=== PATIENT | female | born 1945 | race Caucasian/White ===

== ENCOUNTER 2017-08-05 09:00 | Outpatient (RCR) ==
--- NOTE | 2017-08-02 14:36 | RS.OPPTEV2 ---
Date of Note: 08/02/17 Visit #: 1 Date of Evaluation: 08/02/17 Payer Source: MEDICARE Date of Onset/Injury/Change in Status: 07/01/17 Surgery Performed?: Yes (s/p open bicep tenodesis, open Rotator cuff repair L shld) Procedure Performed: s/p open bicep tenodesis, open Rotator cuff repair L shld Date of Procedure: 07/01/17 Treatment Diagnosis: Rotator cuff tear History of Condition/Mechanism of Injury:: pt with L rotator cuff tear, s/p repair. Prior Level of Function.....Patient was independent with: ADL's, Self Care, Caregiving, Ambulation/Mobility, Community Integration/Access Functional Limitations: Sleep, Self Care, ADL's, Reaching, Pushing, Pulling, Lifting, Carrying Current Subjective/complaints:: pt reports MD told her to remove the sling the day after surgery and only restriction is not to lift >1lb. pt states she is tired from all of the cooking over the holiday. pt states she has been doing pendulum ex as well as wall walking ex. Treatment Side (optional): Left *Precautions: no lifting Medical History Medical History: Hypertension, CVA/TIA, Angina, Arthritis Medical History Comments:: high cholesterol, chronic kidney disease, Surgical History Comments:: port for peritoneal dialysis but has not had to use it yet. Smoking Status: Former smoker Hx Home Medications: lortab Patient's Goals: be able to use LUE Pain Assessment - Pain Description Pain Location: L shld Pain Description: Sharp, Aching Current Pain Intensity: 5-6/10 Worst Pain Intensity: 6/10 Other Comments regarding Pain:: pain increases with ROM Functional Outcome Measure UE Functional Index: 50 (37%) - G Codes & Severity Modifier G Codes & Modifier: carry current CJ. carry goal CI Source of G Code score: UE functional index, functional assessment Observation - Observation Posture: Forward Head, Rounded Shoulders, Increased Thoracic Kyphosis Handedness: Right Gait - Gait Pattern General Gait Pattern Observation: No Deviations/Normal General Range of Motion: RUE WFL's. BLE WFL's Muscle Strength: BLE 5/5. RUE 5/5 Shoulder ROM: Right WFL's Shoulder Muscle Strength: Right WFL's - Left Shoulder ROM Left Shoulder Flexion: 100 (AAROM) Left Shoulder Abduction: 76 (AAROM) Left Shoulder External Rotation: 30 (AAROM) Left Shoulder ROM Limitations: Muscle Weakness, Pain - Left Shoulder Strength Left Shoulder Flexion: 2 Poor Left Shoulder Extension: 3 Fair Left Shoulder Abduction: 2 Poor Left Shoulder Adduction: 3 Fair Left Shoulder External Rotation: 2 Poor Palpation Palpation Findings: Tenderness (L ant shld) Sensation - Sensation Right Upper Extremity: Intact/Normal Left Upper Extremity: Impaired Right Lower Extremity: Intact/Normal Left Lower Extremity: Impaired Sensation Description: Tingling Comments: N/T L fingers and toes since CVA Balance - Sitting Balance Static Sitting Balance: Normal Dynamic Sitting Balance: Normal - Standing Balance Static Standing Balance: Normal Dynamic Standing Balance: Normal - Heat/Cryotherapy Treatment: Cryotherapy Comments:: L shld Interventions - Exercise/Activities/Manual Therapy Exercises/Activities: pt instructed on AAROM with cane for shld flex, abd/add, isometric ex for L shld ext, flex, abd, add Manual Therapy: NA HOME EXERCISE PROGRAM: pt given written HEP for AAROM shld flex and abd/add. isometric shld flex, ext, add, abd - Charges Timed Code Treatment Minutes: 45 Total Treatment Time: 60 Procedures billed for this date of service:: eval med, cold pack Assessment Assessment: pt presents with decreased strength L shld, pain with ROM s/p rotator cuff repair. Patient Education: Home Exercise Program, Education of Plan of Care Rehab Potential: Good Short Term Goals Goal #1: pt report pain <5/10 L shld Goal to be met by: 08/16/17 Goal #2: pt with improved L shld ROM flex AAROM 110 abd 82 Goal to be met by: 08/16/17 Solution Consultant Goals Goal #1: pt independent with HEP Goal to be met by: 09/01/17 Goal #2: pt report pain < 3/10 Goal to be met by: 09/01/17 Goal #3: pt with improved ROM L shld flex 120 abd 90 Goal to be met by: 09/01/17 Goal #4: pt with improved UE functional index score to 65 Goal to be met by: 09/01/17 Plan - Treatment to be Provided Procedures: Therapeutic Exercises, Neuromuscular Rehab, Manual Therapy, Patient Education Modalities: Electrical Stimulation, Ultrasound/Phonophoresis, Cryotherapy, Hot Packs - Treatment Plan Frequency: 2 X week Duration: 4 weeks ORDER # VISITS AND/OR THROUGH DATE: 09/01/17 - Treatment Code (1) Pain in joint, shoulder region Code(s): M25.519 - PAIN IN UNSPECIFIED SHOULDER Qualifiers: Laterality: left Qualified Code(s): M25.512 - Pain in left shoulder (2) Rotator cuff tear, left Code(s): M75.102 - UNSP ROTATR-CUFF TEAR/RUPTR OF LEFT SHOULDER, NOT TRAUMA Qualifiers: Rotator cuff tear extent: unspecified tear extent Qualified Code(s): M75.102 - Unspecified rotator cuff tear or rupture of left shoulder, not specified as traumatic (3) Other specified postprocedural states Code(s): Z98.89 - OTHER SPECIFIED POSTPROCEDURAL STATES * DO NOT USE * Comments: z98.890
--- NOTE | 2017-08-05 10:16 | RS.OPPTDN ---
Subjective Date of Note: 08/05/17 Visit #: 2 Date of Evaluation: 08/02/17 Payer Source: MEDICARE Treatment Diagnosis: Rotator cuff tear Current Subjective/complaints:: Reports increased soreness form exercising at home ,feels she possibly overdid it.We reviewed the precautions from DR. Locke's protocol. *Precautions: no lifting - Heat/Cryotherapy Treatment: Hot Pack (20 mins. prior to exercises) Interventions - Exercise/Activities/Manual Therapy Exercises/Activities: 30 mins. total of PROM in all directions,AAROM using 1# wand for over head flexion and chest press,isometrics of IR/ER abd/add,HEP review,including pendulum. Total minutes of Exercise: 30 Manual Therapy: NA Total minutes of Manual Therapy: 0 HOME EXERCISE PROGRAM: pt given written HEP for AAROM shld flex and abd/add. isometric shld flex, ext, add, abd - Charges Timed Code Treatment Minutes: 30 Total Treatment Time: 60 Procedures billed for this date of service:: hp,ex 2 Assessment: Patient tolerates isometrics well,she reports pain with wand exercises when returning from overhead flexion.She muscle guards with IR/ER due to soreness,but improves with cues to relax.She has no pain with chest press motion in supine.She is attentive to recmmendations of the therapy staff.Patient reminded to do all exercises in PAIN FREE ROM,no lifting > 1 pound. Patient Education: Education of diagnosis, Body/Joint mechanics, Home Exercise Program, Home Safety, Activity Modification, Education of Plan of Care Patient demonstrates compliance with HEP?: Yes Short Term Goals Goal #1: pt report pain <5/10 L shld Goal to be met by: 08/16/17 (7/10 throughout treatment today) Goal #2: pt with improved L shld ROM flex AAROM 110 abd 82 Goal to be met by: 08/16/17 Progress towards Goal:: Progressing Sanitizer Goals Goal #1: pt independent with HEP Goal to be met by: 09/01/17 Progress towards goal: Progressing Goal #2: pt report pain < 3/10 Goal to be met by: 09/01/17 Goal #3: pt with improved ROM L shld flex 120 abd 90 Goal to be met by: 09/01/17 Goal #4: pt with improved UE functional index score to 65 Goal to be met by: 09/01/17 Plan PLAN OF CARE EXPIRES ON:: 09/01/17 ORDER # VISITS AND/OR THROUGH DATE: 09/01/17 PLAN: Continue PT to reduce pain in L shoulder and increase ROM and strength.
== END 2017-08-07 ==
PROVIDERS: ATTEND Orthopaedic Surgery
DX: Z47.89 Encounter for other orthopedic aftercare (principal); M25.512 Pain in left shoulder; M75.102 Unspecified rotator cuff tear or rupture of left shoulder, not specified as traumatic

== ENCOUNTER 2017-09-06 10:00 | Outpatient (RCR) | payer OTHER ==
--- NOTE | 2017-08-09 12:04 | RS.OPPTDN ---
Subjective Date of Note: 08/09/17 Visit #: 3 Date of Evaluation: 08/02/17 Payer Source: MEDICARE Treatment Diagnosis: Rotator cuff tear Current Subjective/complaints:: Patient reports mild increase in pain from beginning exercises at previous session. *Precautions: no lifting Pain Assessment - Pain Description Pain Location: ant L shoulder and along mid deltoid - Heat/Cryotherapy Treatment: Hot Pack (15 mins to the L shoulder in sitting) Interventions - Exercise/Activities/Manual Therapy Exercises/Activities: 30 mins. total of PROM in all directions,AAROM using 1# wand for over head flexion and chest press, but only able to tamica few reps today. Isometrics of IR/ER abd/add,HEP review. Pulleys for flexion x 10. Manual Therapy: NA HOME EXERCISE PROGRAM: pt given written HEP for AAROM shld flex and abd/add. isometric shld flex, ext, add, abd - Charges Timed Code Treatment Minutes: 30 Total Treatment Time: 45 Procedures billed for this date of service:: hp, ex2 Assessment: Patient experiencing increased pain to the L shoulder with ROM today , but particularly with eccentric shoulder flexion in supine. She tamica all other motions well. Pulleys tamica much better than wand exercises. Patient Education: Education of diagnosis, Home Exercise Program Patient demonstrates compliance with HEP?: Yes Short Term Goals Goal #1: pt report pain <5/10 L shld Goal to be met by: 08/16/17 (7/10 throughout treatment today) Goal #2: pt with improved L shld ROM flex AAROM 110 abd 82 Goal to be met by: 08/16/17 Progress towards Goal:: Progressing Progress towards Goal:: Progressing Progress towards Goal:: Progressing Pit Tanner Goals Goal #1: pt independent with HEP Goal to be met by: 09/01/17 Progress towards goal: Progressing Goal #2: pt report pain < 3/10 Goal to be met by: 09/01/17 Goal #3: pt with improved ROM L shld flex 120 abd 90 Goal to be met by: 09/01/17 Goal #4: pt with improved UE functional index score to 65 Goal to be met by: 09/01/17 Plan PLAN OF CARE EXPIRES ON:: 09/01/17 ORDER # VISITS AND/OR THROUGH DATE: 09/01/17 PLAN: continue with therex to improve ROM and progress to strengthening according to protocol
--- NOTE | 2017-08-12 11:00 | RS.OPPTDN ---
Subjective Date of Note: 08/12/17 Visit #: 4 Date of Evaluation: 08/02/17 Payer Source: MEDICARE Treatment Diagnosis: Rotator cuff tear Current Subjective/complaints:: Patient reports the L shoulder is still hurting alot,but does not affect her sleep.She prefers to sleep on R side with the elbow extended.She uses ice at night frequenly for pain relief. *Precautions: no lifting Pain Assessment - Pain Description Pain Description: Dull, Throbbing, Aching Current Pain Intensity: 7/10 - Heat/Cryotherapy Treatment: Hot Pack (20 mins. prior to exercises) Interventions - Exercise/Activities/Manual Therapy Exercises/Activities: 30 mins. total of PROM in all directions,AAROM for over head flexion and chest press, isometrics for abd/add,IR/ER,biceps curls in short ROM with 1#.HEP review. Total minutes of Exercise: 30 Manual Therapy: NA Total minutes of Manual Therapy: 0 HOME EXERCISE PROGRAM: pt given written HEP for AAROM shld flex and abd/add. isometric shld flex, ext, add, abd - Charges Timed Code Treatment Minutes: 30 Total Treatment Time: 50 Procedures billed for this date of service:: hp,ex 2 Assessment: Patient needs cues to relax due to pain with eccentric motion after overhead flexion .She reports aching in the middle deltoid and biceps due to fatigue.Her passive IR /ER is improving . Patient Education: Education of diagnosis, Body/Joint mechanics, Home Exercise Program, Home Safety, Activity Modification, Education of Plan of Care Patient demonstrates compliance with HEP?: Yes Short Term Goals Goal #1: pt report pain <5/10 L shld Goal to be met by: 08/16/17 (7/10 throughout treatment today) Progress towards Goal:: No Change Goal #2: pt with improved L shld ROM flex AAROM 110 abd 82 Goal to be met by: 08/16/17 Progress towards Goal:: Progressing Comments:: abduction is better,no change with flexion Intermediate Goals Goal #1: pt independent with HEP Goal to be met by: 09/01/17 Progress towards goal: Progressing Goal #2: pt report pain < 3/10 Goal to be met by: 09/01/17 Progress towards goal: No Change Goal #3: pt with improved ROM L shld flex 120 abd 90 Goal to be met by: 09/01/17 Goal #4: pt with improved UE functional index score to 65 Goal to be met by: 09/01/17 Plan PLAN OF CARE EXPIRES ON:: 09/01/17 ORDER # VISITS AND/OR THROUGH DATE: 09/01/17 PLAN: Continue PT to improve L shoulder strength and ROM.
--- NOTE | 2017-08-16 13:06 | RS.OPPTDN ---
Subjective Date of Note: 08/16/17 Visit #: 5 Date of Evaluation: 08/02/17 Payer Source: MEDICARE Treatment Diagnosis: Rotator cuff tear Current Subjective/complaints:: pt states she is doing better, still hurts, rates pain 5/10. pt reports MD changed her pain medicine and she is doing better. *Precautions: no lifting Pain Assessment - Pain Description Pain Location: L shld Pain Description: Aching Current Pain Intensity: 5 Other Comments regarding Pain:: pt states that pain is worse with eccentric contractions. - Heat/Cryotherapy Treatment: Cryotherapy Comments:: L shld Interventions - Exercise/Activities/Manual Therapy Exercises/Activities: 30 mins of ex. pt received PROM all directions, overhead flex, and chest press with 1#wand 2 sets of 10 reps, biceps curls with 1# and pulleys with flex and abd 2 sets of 10 reps. Manual Therapy: NA HOME EXERCISE PROGRAM: pt given written HEP for AAROM shld flex and abd/add. isometric shld flex, ext, add, abd - Objective Findings Observations,measurements,etc.: pt pain improved after treatment to 4/10. pt ROM is improving. - Charges Timed Code Treatment Minutes: 32 Total Treatment Time: 48 Procedures billed for this date of service:: ex 2 and cold pack Assessment: pt improving with ROM and pain. Patient Education: Home Exercise Program, Education of Plan of Care Patient demonstrates compliance with HEP?: Yes Short Term Goals Goal #1: pt report pain <5/10 L shld Goal to be met by: 08/16/17 (7/10 throughout treatment today) Progress towards Goal:: Progressing Goal #2: pt with improved L shld ROM flex AAROM 110 abd 82 Goal to be met by: 08/16/17 Progress towards Goal:: Progressing Progress towards Goal:: Progressing Progress towards Goal:: Progressing Retirement Goals Goal #1: pt independent with HEP Goal to be met by: 09/01/17 Progress towards goal: Progressing Goal #2: pt report pain < 3/10 Goal to be met by: 09/01/17 Progress towards goal: Progressing Goal #3: pt with improved ROM L shld flex 120 abd 90 Goal to be met by: 09/01/17 Progress towards goal: Progressing Goal #4: pt with improved UE functional index score to 65 Goal to be met by: 09/01/17 Plan PLAN OF CARE EXPIRES ON:: 09/01/17 ORDER # VISITS AND/OR THROUGH DATE: 09/01/17 PLAN: continue with ex and modalities with focus on increased ROM
--- NOTE | 2017-08-18 15:04 | RS.OPPTDN ---
Subjective Date of Note: 08/18/17 Visit #: 6 Date of Evaluation: 08/02/17 Payer Source: MEDICARE Treatment Diagnosis: Rotator cuff tear Current Subjective/complaints:: pt states she has had increased pain today due to weather. *Precautions: no lifting Pain Assessment - Pain Description Pain Location: L shld Pain Description: Tightness, Aching Current Pain Intensity: 2/10 Worst Pain Intensity: 4/10 after ex - Heat/Cryotherapy Treatment: Hot Pack, Cryotherapy (hot pack to L shld prior to ex, cold pack after ex) Interventions - Exercise/Activities/Manual Therapy Exercises/Activities: 30 mins of ex. pt received PROM all directions, overhead flex, and chest press with 1#wand 1 set of 10 reps, 1 set of 5 reps, biceps curls with 1# and pulleys with flex and abd 1 set of 10 reps. Manual Therapy: NA HOME EXERCISE PROGRAM: pt given written HEP for AAROM shld flex and abd/add. isometric shld flex, ext, add, abd - Objective Findings Observations,measurements,etc.: pt with increased difficulty with ROM L shld this visit due to pain - Charges Timed Code Treatment Minutes: 35 Total Treatment Time: 55 Procedures billed for this date of service:: exercise 2, hot pack Assessment: pt with increased joint stiffness and pain this date. pt unable to tolerate as many ex this visit. Patient Education: Activity Modification, Education of Plan of Care Patient demonstrates compliance with HEP?: Yes Short Term Goals Goal #1: pt report pain <5/10 L shld Goal to be met by: 08/16/17 (7/10 throughout treatment today) Progress towards Goal:: Met Goal #2: pt with improved L shld ROM flex AAROM 110 abd 82 Goal to be met by: 08/16/17 Progress towards Goal:: Progressing Progress towards Goal:: Progressing Progress towards Goal:: Progressing Veterinary Meat Inspector Goals Goal #1: pt independent with HEP Goal to be met by: 09/01/17 Progress towards goal: Progressing Goal #2: pt report pain < 3/10 Goal to be met by: 09/01/17 Progress towards goal: Progressing Goal #3: pt with improved ROM L shld flex 120 abd 90 Goal to be met by: 09/01/17 Progress towards goal: Progressing Goal #4: pt with improved UE functional index score to 65 Goal to be met by: 09/01/17 Plan PLAN OF CARE EXPIRES ON:: 09/01/17 ORDER # VISITS AND/OR THROUGH DATE: 09/01/17 PLAN: Continue to progress with ROM, strengthening as well as modalities for pain control
--- NOTE | 2017-08-23 08:47 | RS.CXNS ---
Date of scheduled appointment: 08/23/17 Type: Cancel Reason for Cancel/NS: inclement weather
--- NOTE | 2017-08-25 14:56 | RS.OPPTDN ---
Subjective Date of Note: 08/25/17 Visit #: 7 Date of Evaluation: 08/02/17 Payer Source: MEDICARE Treatment Diagnosis: Rotator cuff tear Current Subjective/complaints:: Patient c/o increased popping to the L shoulder including increased pain also related to the colder weather. She says her shoulder has been hurting more at the upper arm than at the shoulder joint. *Precautions: no lifting Pain Assessment - Pain Description Pain Location: L posterior and mid deltoid, more at the upper arm than at shoulder joint. Pain Description: Aching, Acute Pain Description: Moderate - Heat/Cryotherapy Treatment: Hot Pack (20 mins to the L shoulder in supine) Interventions - Exercise/Activities/Manual Therapy Exercises/Activities: 30 mins of ex. pt received PROM all directions, overhead flex, and chest press with 1#wand 1 set of 10 reps, 1 set of 5 reps, biceps curls with 1# 2x10. Manual isometrics for all directions x 5. Finished with pulleys with flex and abd 1 set of 20 reps. Manual Therapy: NA HOME EXERCISE PROGRAM: pt given written HEP for AAROM shld flex and abd/add. isometric shld flex, ext, add, abd - Charges Timed Code Treatment Minutes: 30 Total Treatment Time: 50 Procedures billed for this date of service:: hp, ex2 Assessment: Patient presents with increased pain to the L shoulder with c/o increased popping as well. However, no popping felt or heard with PROM today or with strengthening today. She is able to tamica increased shoulder flexion to 112 degrees and abd to 85 degrees AA after her shoulder has been warmed with heat pack and beginning PROM. Patient Education: Education of diagnosis, Home Exercise Program Patient demonstrates compliance with HEP?: Yes Short Term Goals Goal #1: pt report pain <5/10 L shld Goal to be met by: 08/16/17 (7/10 throughout treatment today) Progress towards Goal:: Met Goal #2: pt with improved L shld ROM flex AAROM 110 abd 82 Goal to be met by: 08/16/17 Progress towards Goal:: Met Comments:: This is demo today Progress towards Goal:: Progressing Progress towards Goal:: Progressing Brake Lining Maker Goals Goal #1: pt independent with HEP Goal to be met by: 09/01/17 Progress towards goal: Progressing Goal #2: pt report pain < 3/10 Goal to be met by: 09/01/17 Progress towards goal: Progressing Goal #3: pt with improved ROM L shld flex 120 abd 90 Goal to be met by: 09/01/17 Progress towards goal: Progressing Goal #4: pt with improved UE functional index score to 65 Goal to be met by: 09/01/17 Plan PLAN OF CARE EXPIRES ON:: 09/01/17 ORDER # VISITS AND/OR THROUGH DATE: 09/01/17 PLAN: Patient to continue x 1 more session per order. She would benefit from receiving further orders to continue to improve ROM to the L shoulder and strength. She is to return to ortho MD next week.
--- NOTE | 2017-08-29 14:50 | RS.OPPTDN ---
Subjective Date of Note: 08/29/17 Visit #: 8 Date of Evaluation: 08/02/17 Payer Source: MEDICARE Treatment Diagnosis: Rotator cuff tear Current Subjective/complaints:: Patient says she returns to her ortho on (September 01). She states she has no pain today and is surprised by such a good day. She says she has been using ice to her shoulder throughout the day. *Precautions: no lifting Pain Assessment - Pain Description Pain Location: No pain Interventions - Exercise/Activities/Manual Therapy Exercises/Activities: 38 mins of ex. pt received PROM all directions with gentle stretching, overhead flex, and chest press with 2#wand 2 set of 10 reps, Increased elbow and wrist to 2# all motions 2x10. Manual isometrics for all directions 2x 5. Sitting: shoulder flexion with 2# wand, red tband for scap retraction, shoulder shrugs. Demo L SB stretching for home. Finished with pulleys with flex and abd 1 set of 20 reps. Manual Therapy: NA HOME EXERCISE PROGRAM: pt given written HEP for AAROM shld flex and abd/add. isometric shld flex, ext, add, abd - Charges Timed Code Treatment Minutes: 38 Total Treatment Time: 38 Procedures billed for this date of service:: ex3 Assessment: Patient progressing with all A and PROM today is is fairly comparable to last few sessions gaining slowly in all functional tasks at home. She presents without pain today and generally feeling significantly better physically and about her rehab. Patient Education: Education of diagnosis, Home Exercise Program Patient demonstrates compliance with HEP?: Yes Short Term Goals Goal #1: pt report pain <5/10 L shld Goal to be met by: 08/16/17 (7/10 throughout treatment today) Progress towards Goal:: Met Goal #2: pt with improved L shld ROM flex AAROM 110 abd 82 Goal to be met by: 08/16/17 Progress towards Goal:: Met Progress towards Goal:: Progressing Progress towards Goal:: Progressing Group Home Goals Goal #1: pt independent with HEP Goal to be met by: 09/01/17 Progress towards goal: Progressing Goal #2: pt report pain < 3/10 Goal to be met by: 09/01/17 Progress towards goal: Progressing Goal #3: pt with improved ROM L shld flex 120 abd 90 Goal to be met by: 09/01/17 Progress towards goal: Progressing Goal #4: pt with improved UE functional index score to 65 Goal to be met by: 09/01/17 Plan PLAN OF CARE EXPIRES ON:: 09/01/17 ORDER # VISITS AND/OR THROUGH DATE: 09/01/17 PLAN: Patient to return to MD , 09/01/17. Patient may benefit from receiving more orders to continue.
--- NOTE | 2017-09-01 10:59 | RS.PTSUM ---
Progress Note/Summary Date of Note: 09/01/17 Date of Evaluation: 08/02/17 Number of Visits: 9 Reporting Period for this Progress Note: 08/02/17-09/01/17 Current Complaints/Gains: pt states she feels she has improved, still having trouble lifting arm and difficulty with rotation. Objective Measurements/Presentation: L shld AAROM flex 110. AAROM abd 90 G Codes: mobilty current CI. mobility goal CH Source of G Code Score: UE functional index improved from eval 50/80 to current 68/80 - Short Term Goals Goal #1: pt report pain <5/10 L shld Goal to be met by: 08/16/17 (7/10 throughout treatment today) Progress towards Goal:: Met Goal #2: pt with improved L shld ROM flex AAROM 110 abd 82 Goal to be met by: 08/16/17 Progress towards Goal:: Met - Tobacco Drummer Goals Goal #1: pt independent with HEP Goal to be met by: 09/29/17 Progress towards goal: Progressing Goal #2: pt report pain 0/10 with activity Goal to be met by: 09/29/17 Progress towards goal: Progressing Goal #3: pt with improved ROM L shld flex 120 abd 90 Goal to be met by: 09/29/17 Progress towards goal: Partially Met (pt L shld flex 110 abd 90) Goal #4: pt with improved UE functional index score to >70 Goal to be met by: 09/29/17 Progress towards goal: Progressing - Assessment Assessment of Improvement/Progress: pt has met STG and had met initial LTG 2, 4 these goals have been updated. pt has made significant progress with ROM, decreased pain as well as strength. pt continues to require skilled PT for ROM and strengthening to improve functional ability to allow pt to return to prior level of function. Summary: Patient has made progress towards goals., Patient demonstrates potential to gain increased function with therapy - Plan Plan: Continue Plan of Care Comments: New order received to continue [address] Locke Frequency: 2 X week Duration: 4 weeks PLAN OF CARE EXPIRES ON:: 09/29/17 ORDER # VISITS AND/OR THROUGH DATE: 09/29/17
--- NOTE | 2017-09-01 14:49 | RS.OPPTDN ---
Subjective Date of Note: 09/01/17 Visit #: 9 Date of Evaluation: 08/02/17 Payer Source: MEDICARE Treatment Diagnosis: Rotator cuff tear Current Subjective/complaints:: Patient says she doesn't have pain, but c/o stiffness. She says she has soreness to the L upper arm. She says her MD follow up went well. She does have a continuation order for 4 more weeks and will follow up with him at that time. *Precautions: no lifting Interventions - Exercise/Activities/Manual Therapy Exercises/Activities: 38 mins of ex. pt received PROM all directions with gentle stretching, overhead flex, and chest press with 2#wand 2 set of 10 reps, Continued with elbow and wrist to 2# all motions 2x10. Manual isometrics for all directions 2x 5. Sitting: shoulder flexion with 2# wand, red tband for scap retraction, shoulder shrugs. Demo L SB stretching for home. Patient was reassessed by PT using UE Functional Index and measurements. Manual Therapy: NA HOME EXERCISE PROGRAM: pt given written HEP for AAROM shld flex and abd/add. isometric shld flex, ext, add, abd. scap retraction with red tband - Charges Timed Code Treatment Minutes: 38 Total Treatment Time: 38 Procedures billed for this date of service:: ex3 Assessment: Patient presents with an order to continue 2x4 weeks and follow up in 4 weeks. She is demo improved ROM, but could improve further regarding IR/ ER with continued therex. She maintains very low level of pain and is mostly present at end range shoulder flexion and ER. She demo increased general strength and control with all weighted exercise and is very compliant with HEP. Patient Education: Education of Plan of Care Patient demonstrates compliance with HEP?: Yes Short Term Goals Goal #1: pt report pain <5/10 L shld Goal to be met by: 08/16/17 (7/10 throughout treatment today) Progress towards Goal:: Met Goal #2: pt with improved L shld ROM flex AAROM 110 abd 82 Goal to be met by: 08/16/17 Progress towards Goal:: Met Goal #3: Patient will present no sign of allodynia and paresthesia. Goal to be met by: 10/23/15 (70%) Progress towards Goal:: Progressing Goal #4: Patient will present good left upper extremity strength. Goal to be met by: 10/23/15 Progress towards Goal:: Progressing Long-Term Goals Goal #1: pt independent with HEP Goal to be met by: 09/29/17 Progress towards goal: Progressing Goal #2: pt report pain 0/10 with activity Goal to be met by: 09/29/17 Progress towards goal: Progressing Goal #3: pt with improved ROM L shld flex 120 abd 90 Goal to be met by: 09/29/17 Progress towards goal: Partially Met (pt L shld flex 110 abd 90) Goal #4: pt with improved UE functional index score to >70 Goal to be met by: 09/29/17 Progress towards goal: Progressing Plan PLAN OF CARE EXPIRES ON:: 09/29/17 ORDER # VISITS AND/OR THROUGH DATE: 09/29/17 PLAN: Patient to continue with new order x 4 more weeks to increase ROM, particularly IR/ER per ortho MD. She will follow up with him in 4 weeks.
--- NOTE | 2017-09-06 13:47 | RS.OPPTDN ---
Subjective Date of Note: 09/06/17 Visit #: 10 Date of Evaluation: 08/02/17 Payer Source: MEDICARE Treatment Diagnosis: Rotator cuff tear Current Subjective/complaints:: Patient c/o increased pain today. She describes ache to the L anterior shoulder. She recalls no reason for this elevated pain. Says she has rested for 1-2 days, but has not eased much. *Precautions: no lifting - Heat/Cryotherapy Treatment: Hot Pack (15 mins to the L shoulder before therex in supine) Interventions - Exercise/Activities/Manual Therapy Exercises/Activities: 33 mins of ex. pt received more gentle exericise. PROM all dir. Manual isometrics all dir 2x5. 1# wand exercise for bilateral shoulder flexion. Ended with shoulder shrugs and pulleys x 3 mins. Manual Therapy: NA HOME EXERCISE PROGRAM: pt given written HEP for AAROM shld flex and abd/add. isometric shld flex, ext, add, abd. scap retraction with red tband - Charges Timed Code Treatment Minutes: 33 Total Treatment Time: 48 Procedures billed for this date of service:: hp, ex2 Assessment: Patient experiencing increased L anterior shoulder pain today for unknown reasons. She has rested from housework and ices consistently, but maintained moderate level. With heat today and therex, pain has decreased. More conservative exercises performed today to ease symptoms. Passive shoulder flexion/abd was somewhat limited in range. Patient Education: Home Exercise Program, Education of Plan of Care Patient demonstrates compliance with HEP?: Yes Short Term Goals Goal #1: pt report pain <5/10 L shld Goal to be met by: 08/16/17 (7/10 throughout treatment today) Progress towards Goal:: Met Goal #2: pt with improved L shld ROM flex AAROM 110 abd 82 Goal to be met by: 08/16/17 Progress towards Goal:: Met Goal #3: Patient will present no sign of allodynia and paresthesia. Goal to be met by: 10/23/15 (70%) Progress towards Goal:: Progressing Goal #4: Patient will present good left upper extremity strength. Goal to be met by: 10/23/15 Progress towards Goal:: Progressing Digital Pre Press Operator Goals Goal #1: pt independent with HEP Goal to be met by: 09/29/17 Progress towards goal: Progressing Goal #2: pt report pain 0/10 with activity Goal to be met by: 09/29/17 Progress towards goal: Progressing Goal #3: pt with improved ROM L shld flex 120 abd 90 Goal to be met by: 09/29/17 Progress towards goal: Partially Met (pt L shld flex 110 abd 90) Goal #4: pt with improved UE functional index score to >70 Goal to be met by: 09/29/17 Progress towards goal: Progressing Plan PLAN OF CARE EXPIRES ON:: 09/29/17 ORDER # VISITS AND/OR THROUGH DATE: 09/29/17 PLAN: Patient to continue with new order and will progress ROM and strength.
== END 2017-09-07 ==
PROVIDERS: ATTEND Orthopaedic Surgery
DX: Z47.89 Encounter for other orthopedic aftercare (principal); M25.512 Pain in left shoulder; M75.102 Unspecified rotator cuff tear or rupture of left shoulder, not specified as traumatic

== ENCOUNTER 2017-10-04 10:00 | Outpatient (RCR) | payer OTHER ==
--- NOTE | 2017-09-08 15:49 | RS.OPPTDN ---
Subjective Date of Note: 09/08/17 Visit #: 11 Date of Evaluation: 08/02/17 Payer Source: MEDICARE Treatment Diagnosis: Rotator cuff tear Current Subjective/complaints:: Patient says she was completely pain free the day of the lunar eclipse (yesterday), but today her pain returned. She says she has been resting from harder household activities and still has bothered her. *Precautions: no lifting Interventions - Exercise/Activities/Manual Therapy Exercises/Activities: 33 mins of ex. pt received more gentle exericise. PROM all dir. Manual isometrics all dir 2x5. 1# wand exercise for bilateral shoulder flexion. Ended with shoulder shrugs and pulleys x 3 mins. Manual Therapy: NA HOME EXERCISE PROGRAM: pt given written HEP for AAROM shld flex and abd/add. isometric shld flex, ext, add, abd. scap retraction with red tband - Charges Timed Code Treatment Minutes: 33 Total Treatment Time: 33 Procedures billed for this date of service:: ex2 Assessment: Patient admits to painfree day yesterday and then pain returned last night to the L mid deltoid region. She was able to tamica increased shoulder flexion today after prolonged ROM. Good resistance provided by patient during isometrics today. Patient Education: Home Exercise Program, Activity Modification Patient demonstrates compliance with HEP?: Yes Short Term Goals Goal #1: pt report pain <5/10 L shld Goal to be met by: 08/16/17 (7/10 throughout treatment today) Progress towards Goal:: Met Goal #2: pt with improved L shld ROM flex AAROM 110 abd 82 Goal to be met by: 08/16/17 Progress towards Goal:: Met Goal #3: Patient will present no sign of allodynia and paresthesia. Goal to be met by: 10/23/15 (70%) Progress towards Goal:: Progressing Goal #4: Patient will present good left upper extremity strength. Goal to be met by: 10/23/15 Progress towards Goal:: Progressing Capital Campaign Fundraiser Goals Goal #1: pt independent with HEP Goal to be met by: 09/29/17 Progress towards goal: Progressing Goal #2: pt report pain 0/10 with activity Goal to be met by: 09/29/17 Progress towards goal: Progressing Goal #3: pt with improved ROM L shld flex 120 abd 90 Goal to be met by: 09/29/17 Progress towards goal: Partially Met (pt L shld flex 110 abd 90) Goal #4: pt with improved UE functional index score to >70 Goal to be met by: 09/29/17 Progress towards goal: Progressing Plan PLAN OF CARE EXPIRES ON:: 09/29/17 ORDER # VISITS AND/OR THROUGH DATE: 09/29/17 PLAN: Patient to continue with new order for therex to the L shoulder to build strength and ROM
--- NOTE | 2017-09-13 10:59 | RS.OPPTDN ---
Subjective Date of Note: 09/13/17 Visit #: 12 Date of Evaluation: 08/02/17 Payer Source: MEDICARE Treatment Diagnosis: Rotator cuff tear Current Subjective/complaints:: Patient says she is hurting more today and stiff. She says she contemplated cancelling today, but thought maybe PT could work out the "kinks." *Precautions: no lifting Interventions - Exercise/Activities/Manual Therapy Exercises/Activities: 38 mins of ex. PROM all dir with long axis joint distraction. Manual isometrics all dir 2x5 for shoulder/elbow. 2# wand exercise for bilateral shoulder flexion. 1# punches and short range shoulder flexion. 2# dumbell for wrist and elbow x 10. Sitting: scap retraction with green tband, 1# wand for bilateral shoulder flexion x 8. Ended with shoulder shrugs and pulleys x 3 mins. Manual Therapy: NA HOME EXERCISE PROGRAM: pt given written HEP for AAROM shld flex and abd/add. isometric shld flex, ext, add, abd. scap retraction with red tband - Charges Timed Code Treatment Minutes: 38 Total Treatment Time: 38 Procedures billed for this date of service:: ex3 Assessment: Patient with increased L shoulder pain today for unknown reasons. Patient able to achieve shoulder flexion to 125 passively today limited by pain , abd to 95 degrees. Patient Education: Education of diagnosis, Home Exercise Program Patient demonstrates compliance with HEP?: Yes Short Term Goals Goal #1: pt report pain <5/10 L shld Goal to be met by: 08/16/17 (7/10 throughout treatment today) Progress towards Goal:: Met Goal #2: pt with improved L shld ROM flex AAROM 110 abd 82 Goal to be met by: 08/16/17 Progress towards Goal:: Met Goal #3: Patient will present no sign of allodynia and paresthesia. Goal to be met by: 10/23/15 (70%) Progress towards Goal:: Progressing Goal #4: Patient will present good left upper extremity strength. Goal to be met by: 10/23/15 Progress towards Goal:: Progressing Personnel Associate Goals Goal #1: pt independent with HEP Goal to be met by: 09/29/17 Progress towards goal: Progressing Goal #2: pt report pain 0/10 with activity Goal to be met by: 09/29/17 Progress towards goal: Progressing Goal #3: pt with improved ROM L shld flex 120 abd 90 Goal to be met by: 09/29/17 Progress towards goal: Partially Met (pt L shld flex 110 abd 90) Goal #4: pt with improved UE functional index score to >70 Goal to be met by: 09/29/17 Progress towards goal: Progressing Plan PLAN OF CARE EXPIRES ON:: 09/29/17 ORDER # VISITS AND/OR THROUGH DATE: 09/29/17 PLAN: Patient returns to MD 09/28/17. Patient to continue for therex to improve active L shoulder flexion.
--- NOTE | 2017-09-16 15:24 | RS.OPPTDN ---
Subjective Date of Note: 09/16/17 Visit #: 13 Date of Evaluation: 08/02/17 Payer Source: MEDICARE Treatment Diagnosis: Rotator cuff tear Current Subjective/complaints:: Patient says she has had improved pain level today. Reports improved ROM and says she is happy with her strength and that she can raise her arm higher. *Precautions: no lifting Interventions - Exercise/Activities/Manual Therapy Exercises/Activities: 38 mins of ex. PROM all dir with long axis joint distraction. Manual isometrics all dir 2x5 for shoulder/elbow. 2# wand exercise for bilateral shoulder flexion. 1# punches and short range shoulder flexion. 2# dumbell for wrist and elbow x 10. Sitting: scap retraction with green tband, 2# wand for bilateral shoulder flexion x 8. 1# shoulder flexion x 8. Ended with shoulder shrugs and pulleys x 3 mins. Manual Therapy: NA HOME EXERCISE PROGRAM: pt given written HEP for AAROM shld flex and abd/add. isometric shld flex, ext, add, abd. scap retraction with red tband - Charges Timed Code Treatment Minutes: 38 Total Treatment Time: 38 Procedures billed for this date of service:: ex3 Assessment: Patient experiencing less pain today to the L shoulder. She is able to perform all therex with improved ease. She demo active shoulder flexion with 1# to 140 degrees in sitting with slight scapular compensation. Patient Education: Education of diagnosis, Home Exercise Program Patient demonstrates compliance with HEP?: Yes Short Term Goals Goal #1: pt report pain <5/10 L shld Goal to be met by: 08/16/17 (7/10 throughout treatment today) Progress towards Goal:: Met Goal #2: pt with improved L shld ROM flex AAROM 110 abd 82 Goal to be met by: 08/16/17 Progress towards Goal:: Met Goal #3: Patient will present no sign of allodynia and paresthesia. Goal to be met by: 10/23/15 (70%) Progress towards Goal:: Progressing Goal #4: Patient will present good left upper extremity strength. Goal to be met by: 10/23/15 Progress towards Goal:: Progressing Prison Goals Goal #1: pt independent with HEP Goal to be met by: 09/29/17 Progress towards goal: Progressing Goal #2: pt report pain 0/10 with activity Goal to be met by: 09/29/17 Progress towards goal: Progressing Goal #3: pt with improved ROM L shld flex 120 abd 90 Goal to be met by: 09/29/17 Progress towards goal: Partially Met (pt L shld flex 110 abd 90) Goal #4: pt with improved UE functional index score to >70 Goal to be met by: 09/29/17 Progress towards goal: Progressing Plan PLAN OF CARE EXPIRES ON:: 09/29/17 ORDER # VISITS AND/OR THROUGH DATE: 09/29/17 PLAN: Patient to continue to receive progressive therex to improve active motion against gravity.
--- NOTE | 2017-09-22 12:01 | RS.OPPTDN ---
Subjective Date of Note: 09/22/17 Visit #: 15 Date of Evaluation: 08/02/17 Payer Source: MEDICARE Treatment Diagnosis: Rotator cuff tear Current Subjective/complaints:: Patient says today is the first she has had pain in several days. She believes it may be the damp weather. *Precautions: no lifting Interventions - Exercise/Activities/Manual Therapy Exercises/Activities: 38 mins of ex. PROM all dir with long axis joint distraction. Manual isometrics all dir 2x5 for shoulder/elbow. 2# wand exercise for bilateral shoulder flexion. 1 1/2# punches and short range shoulder flexion. Attempted green tband pull downs, but she felt pain and thought it was going to pop. 7 and 9# digiflexors, 1 1/2# biceps/triceps. Sitting: scap retraction with green tband, 2# wand for bilateral shoulder flexion x 8. Ended with pulleys x 4 mins with 1 1/2# cuff weight. Manual Therapy: NA HOME EXERCISE PROGRAM: pt given written HEP for AAROM shld flex and abd/add. isometric shld flex, ext, add, abd. scap retraction with red tband - Charges Timed Code Treatment Minutes: 38 Total Treatment Time: 38 Procedures billed for this date of service:: ex3 Assessment: Patient with moderate L shoulder pain today she felt is related to damp weather front. She has had 4 days pain free. Some therex was modified today due to pain and her feeling shoulder would pop. Resisted shoulder flexion actively is less today due to pain, but did improve after several mins of PROM/distraction to 140 degrees. Patient Education: Home Exercise Program Patient demonstrates compliance with HEP?: Yes Short Term Goals Goal #1: pt report pain <5/10 L shld Goal to be met by: 08/16/17 (7/10 throughout treatment today) Progress towards Goal:: Met Goal #2: pt with improved L shld ROM flex AAROM 110 abd 82 Goal to be met by: 08/16/17 Progress towards Goal:: Met Goal #3: Patient will present no sign of allodynia and paresthesia. Goal to be met by: 10/23/15 (70%) Progress towards Goal:: Progressing Goal #4: Patient will present good left upper extremity strength. Goal to be met by: 10/23/15 Progress towards Goal:: Progressing Detention Goals Goal #1: pt independent with HEP Goal to be met by: 09/29/17 Progress towards goal: Progressing Goal #2: pt report pain 0/10 with activity Goal to be met by: 09/29/17 Progress towards goal: Progressing Goal #3: pt with improved ROM L shld flex 120 abd 90 Goal to be met by: 09/29/17 Progress towards goal: Partially Met (pt L shld flex 110 abd 90) Goal #4: pt with improved UE functional index score to >70 Goal to be met by: 09/29/17 Progress towards goal: Progressing Plan PLAN OF CARE EXPIRES ON:: 09/29/17 ORDER # VISITS AND/OR THROUGH DATE: 09/29/17 PLAN: Patient to continue x 1 more visit next week and then attend follow up on Tuesday with ortho. She may benefit from ~2 more weeks of progressive therapy.
--- NOTE | 2017-09-27 11:34 | RS.OPPTDN ---
Subjective Date of Note: 09/27/17 Visit #: 16 Date of Evaluation: 08/02/17 Payer Source: MEDICARE Treatment Diagnosis: Rotator cuff tear Current Subjective/complaints:: Patient says she is doing good. Reports her pain level has been very low the past few days. She says she returns to the ortho tomorrow and feels she will be released. She is working on HEP daily and recalls she can perform most all household tasks avoiding heavy lifting. *Precautions: no lifting Interventions - Exercise/Activities/Manual Therapy Exercises/Activities: 38 mins of ex. PROM and stretching all dir with long axis joint distraction. Manual isometrics all dir 2x5 for shoulder/elbow. Increased to 3# wand exercise for bilateral shoulder flexion. 1 1/2# punches and short range shoulder flexion. Measurements in supine and sitting. Sitting : scap retraction with green tband, 2# wand for bilateral shoulder flexion x 8. Tested cloth tester quality. Manual Therapy: NA HOME EXERCISE PROGRAM: pt given written HEP for AAROM shld flex and abd/add. isometric shld flex, ext, add, abd. scap retraction with red tband - Objective Findings Observations,measurements,etc.: Botany Professor L: 40# 2nd position. Botany Professor R: 43# dominant hand. Active shoulder flexion: 135, 151 passive. Active shoulder ABD : 110, 116 passive. Active ER: 48 - Charges Timed Code Treatment Minutes: 38 Total Treatment Time: 38 Procedures billed for this date of service:: ex3 Assessment: Patient has progressed well with all goals. ROM is WFL and has shown improved strength resuming all ADLs, while avoiding heavy lifting. Patient Education: Education of diagnosis, Home Exercise Program, Education of Plan of Care Patient demonstrates compliance with HEP?: Yes Short Term Goals Goal #1: pt report pain <5/10 L shld Goal to be met by: 08/16/17 (7/10 throughout treatment today) Progress towards Goal:: Met Goal #2: pt with improved L shld ROM flex AAROM 110 abd 82 Goal to be met by: 08/16/17 Progress towards Goal:: Met Goal #3: Patient will present no sign of allodynia and paresthesia. Goal to be met by: 10/23/15 (70%) Progress towards Goal:: Partially Met Comments:: Remains with fingertip tingling from CVA Goal #4: Patient will present good left upper extremity strength. Goal to be met by: 10/23/15 Progress towards Goal:: Met Milk Truck Driver Goals Goal #1: pt independent with HEP Goal to be met by: 09/29/17 Progress towards goal: Met Goal #2: pt report pain 0/10 with activity Goal to be met by: 09/29/17 Progress towards goal: Progressing Comments: She does hurt with end range ABD/ER passively and weather changes/ heavy act Goal #3: pt with improved ROM L shld flex 120 abd 90 Goal to be met by: 09/29/17 Progress towards goal: Met (pt L shld flex 110 abd 90) Goal #4: pt with improved UE functional index score to >70 Goal to be met by: 09/29/17 Progress towards goal: Progressing Comments: 68 Plan PLAN OF CARE EXPIRES ON:: 09/29/17 ORDER # VISITS AND/OR THROUGH DATE: 09/29/17 PLAN: Patient to attend follow up tomorrow with Dr. Locke. Recommend d/c if MD agreeable to progress HeP independently.
--- NOTE | 2017-10-04 16:27 | RS.OPPTDN ---
Subjective Date of Note: 09/29/17 Visit #: 17 Date of Evaluation: 08/02/17 Payer Source: MEDICARE Treatment Diagnosis: Rotator cuff tear Current Subjective/complaints:: Patient says she has had very little pain to the L shoulder, but says her ortho did give her an order to continue if we felt she needed further PT. Explained we could probably justify ~2 weeks more. *Precautions: no lifting Interventions - Exercise/Activities/Manual Therapy Exercises/Activities: 38 mins of ex. PROM and stretching all dir with long axis joint distraction. Manual isometrics all dir 2x5 for shoulder/elbow. Increased to 3# wand exercise for bilateral shoulder flexion. 1 1/2# punches and short range shoulder flexion. 2# for wrist and elbow all x10. Red tband for shoulder pull downs x 10. Sitting: scap retraction with green tband, 2# wand for bilateral shoulder flexion x 8. Ended with shoulder pulleys with 1# on L UE x 2 mins. Manual Therapy: NA HOME EXERCISE PROGRAM: pt given written HEP for AAROM shld flex and abd/add. isometric shld flex, ext, add, abd. scap retraction with red tband - Charges Timed Code Treatment Minutes: 38 Total Treatment Time: 38 Procedures billed for this date of service:: ex3 Assessment: Patient has an order to continue therapy following her ortho appt. She should further improve in L shoulder ROM/strength for ~2 more weeks. Focus on increasing ER per MD request. Patient Education: Education of Plan of Care Patient demonstrates compliance with HEP?: Yes Short Term Goals Goal #1: pt report pain <5/10 L shld Goal to be met by: 08/16/17 (7/10 throughout treatment today) Progress towards Goal:: Met Goal #2: pt with improved L shld ROM flex AAROM 110 abd 82 Goal to be met by: 08/16/17 Progress towards Goal:: Met Goal #3: Patient will present no sign of allodynia and paresthesia. Goal to be met by: 10/23/15 (70%) Progress towards Goal:: Partially Met Goal #4: Patient will present good left upper extremity strength. Goal to be met by: 10/23/15 Progress towards Goal:: Met Title Searcher Goals Goal #1: pt independent with HEP Goal to be met by: 09/29/17 Progress towards goal: Met Goal #2: pt report pain 0/10 with activity Goal to be met by: 09/29/17 Progress towards goal: Progressing Goal #3: pt with improved ROM L shld flex 120 abd 90 Goal to be met by: 09/29/17 Progress towards goal: Met (pt L shld flex 110 abd 90) Goal #4: pt with improved UE functional index score to >70 Goal to be met by: 09/29/17 Progress towards goal: Progressing Plan PLAN OF CARE EXPIRES ON:: 09/29/17 ORDER # VISITS AND/OR THROUGH DATE: 09/29/17 PLAN: Patient has completed original order. She has a continuation at this time and would benefit from ~ 2 more weeks to focus on increasing ER.
--- NOTE | 2017-10-04 16:44 | RS.OPPTDN ---
Subjective Date of Note: 09/20/17 Visit #: 14 Date of Evaluation: 08/02/17 Payer Source: MEDICARE Treatment Diagnosis: Rotator cuff tear Current Subjective/complaints:: Patient reports using the L UE for cooking today and seems to have improvement with tamica. She says pain has been little to none since Sat. She says she is sleeping well now and through the night. Reports she will return to the MD next Tuesday. *Precautions: no lifting Pain Assessment - Pain Description Pain Location: "very little" L upper arm. tenderness at incision remains Interventions - Exercise/Activities/Manual Therapy Exercises/Activities: 38 mins of ex. PROM all dir with long axis joint distraction. Manual isometrics all dir 2x5 for shoulder/elbow. 2# wand exercise for bilateral shoulder flexion. 1# punches and short range shoulder flexion. Red tband pull downs and bilateral shoulder ER in supine x 10, biceps red tband x 10. Sitting: scap retraction with green tband, 2# wand for bilateral shoulder flexion x 8. 1# shoulder flexion x 8. Ended with shoulder shrugs and pulleys x 3 mins. Manual Therapy: NA HOME EXERCISE PROGRAM: pt given written HEP for AAROM shld flex and abd/add. isometric shld flex, ext, add, abd. scap retraction with red tband - Charges Timed Code Treatment Minutes: 38 Total Treatment Time: 38 Procedures billed for this date of service:: ex3 Patient Education: Home Exercise Program, Education of Plan of Care Patient demonstrates compliance with HEP?: Yes Short Term Goals Goal #1: pt report pain <5/10 L shld Goal to be met by: 08/16/17 (7/10 throughout treatment today) Progress towards Goal:: Met Goal #2: pt with improved L shld ROM flex AAROM 110 abd 82 Goal to be met by: 08/16/17 Progress towards Goal:: Met Goal #3: Patient will present no sign of allodynia and paresthesia. Goal to be met by: 10/23/15 (70%) Progress towards Goal:: Progressing Goal #4: Patient will present good left upper extremity strength. Goal to be met by: 10/23/15 Progress towards Goal:: Progressing [facility] Goals Goal #1: pt independent with HEP Goal to be met by: 09/29/17 Progress towards goal: Progressing Goal #2: pt report pain 0/10 with activity Goal to be met by: 09/29/17 Progress towards goal: Progressing Goal #3: pt with improved ROM L shld flex 120 abd 90 Goal to be met by: 09/29/17 Progress towards goal: Partially Met (pt L shld flex 110 abd 90) Goal #4: pt with improved UE functional index score to >70 Goal to be met by: 09/29/17 Progress towards goal: Progressing Plan PLAN OF CARE EXPIRES ON:: 09/29/17 ORDER # VISITS AND/OR THROUGH DATE: 09/29/17 PLAN: Patient to continue BIW for therex to the L UE
--- NOTE | 2017-10-05 14:31 | RS.PTSUM ---
Progress Note/Summary Date of Note: 10/04/17 Date of Evaluation: 08/02/17 Number of Visits: 17 Reporting Period for this Progress Note: 09/01/17-10/04/17 Current Complaints/Gains: pt states that it is hurting more today and she is not sure why. States it has been "popping alot". States she told MD and he was not concerned about "popping". Objective Measurements/Presentation: Measurements for L shld flex active 135, passive 151, abd active 110, passive 116, ER 48. pt with pain with ROM L shld. G Codes: mobility current CI. mobility goal CH Source of G Code Score: functional presentation - Short Term Goals Goal #1: pt report pain <5/10 L shld Goal to be met by: 08/16/17 Progress towards Goal:: Met Goal #2: pt with improved L shld ROM flex AAROM 110 abd 82 Goal to be met by: 08/16/17 Progress towards Goal:: Met Goal #3: . Goal #4: . - Guidance Adviser Goals Goal #1: pt independent with HEP Goal to be met by: 09/29/17 Progress towards goal: Met Goal #2: pt report pain 0/10 with activity Goal to be met by: 10/12/17 (pt rates pain 4/10 with activity 1/10 at rest) Progress towards goal: Progressing Goal #3: pt with improved ROM L shld ER 55 Goal to be met by: 10/12/17 (goal previously met, new goal established 10/04/17) Progress towards goal: Progressing Goal #4: pt with improved UE functional index score to >70 Goal to be met by: 10/12/17 Progress towards goal: Progressing - Assessment Assessment of Improvement/Progress: pt has met STG's as well as LTG #1, had previously met LTG #3 and goal revised this date. pt is progressing with improved ROM from L shld flex 110 on previous progress note to 151 currently, abd improved from 90 on prev progress note to 116 currently. pt pain has also decreased. pt is doing well with HEP. pt continues to require skilled PT due to decreased ER and continued pain and decreased strength. MD ordered to continue PT per therapist discretion to focus on ER. Anticipate dc from PT next week. Summary: Patient has made progress towards goals., Patient demonstrates potential to gain increased function with therapy - Plan Plan: Continue Plan of Care Frequency: 3 X week Duration: 2 weeks PLAN OF CARE EXPIRES ON:: 10/12/17 ORDER # VISITS AND/OR THROUGH DATE: 10/12/17
--- NOTE | 2017-10-05 14:31 | RS.OPPTDN ---
Subjective Date of Note: 10/04/17 Visit #: 18 Date of Evaluation: 08/02/17 Payer Source: MEDICARE Treatment Diagnosis: Rotator cuff tear Current Subjective/complaints:: Patient c/o increased pain today. She says she has no known reason to see such an increase other than possible damp weather approaching. She admits increase in popping and pain during popping. She uses ice intermittently at home with some relief. *Precautions: no lifting Pain Assessment - Pain Description Pain Location: L shoulder and upper arm - Heat/Cryotherapy Treatment: Hot Pack (10 mins to the L shoulder after therex ) Interventions - Exercise/Activities/Manual Therapy Exercises/Activities: Patient began with shoulder pulleys for flexion x 5-6 before having increased pain level causing her to discontinue. She received continued PROM all dir of the L shoulder with long axis distraction and A/P GH joint mobs. This elicited pain as well. She performs isometric shoulder flex/ ext/IR/ER 2x5. 1# elbow flexion/ext and wrist. Unable to perform punches or shoulder flexion with weight with elbow extended. She sits for active shoulder flexion, shoulder shrugs, and scap adduction. Total minutes of Exercise: 38 Manual Therapy: NA HOME EXERCISE PROGRAM: pt given written HEP for AAROM shld flex and abd/add. isometric shld flex, ext, add, abd. scap retraction with red tband - Charges Timed Code Treatment Minutes: 38 Total Treatment Time: 38 Procedures billed for this date of service:: ex3 Assessment: Patient experiencing increase in pain to the L shoulder. She is able to tamica isometrics, but no resisted shoulder flexion against gravity. Pulleys were more intolerable as we tried them prior to supine exercises than at the end of session. She demo more limitation with active shoulder flex/abd today in sitting at end of session. Patient was encouraged to try to cycle heat /ice at home for pain and to perform ROM to the L UE. Patient Education: Home Exercise Program, Education of Plan of Care Patient demonstrates compliance with HEP?: Yes Short Term Goals Goal #1: pt report pain <5/10 L shld Goal to be met by: 08/16/17 (7/10 throughout treatment today) Progress towards Goal:: Met Goal #2: pt with improved L shld ROM flex AAROM 110 abd 82 Goal to be met by: 08/16/17 Progress towards Goal:: Met Goal #3: Patient will present no sign of allodynia and paresthesia. Goal to be met by: 10/23/15 (70%) Progress towards Goal:: Partially Met Goal #4: Patient will present good left upper extremity strength. Goal to be met by: 10/23/15 Progress towards Goal:: Met [facility] Goals Goal #1: pt independent with HEP Goal to be met by: 10/12/17 Progress towards goal: Met Goal #2: pt report pain 0/10 with activity Goal to be met by: 10/12/17 Progress towards goal: Progressing Goal #3: pt with improved ROM L shld flex 120 abd 90 Goal to be met by: 10/12/17 Progress towards goal: Met (pt L shld flex 110 abd 90) Goal #4: pt with improved UE functional index score to >70 Goal to be met by: 10/12/17 Progress towards goal: Progressing Plan PLAN OF CARE EXPIRES ON:: 10/12/17 ORDER # VISITS AND/OR THROUGH DATE: 10/12/17 PLAN: Patient to continue with new order x 2 more weeks to focus on ER per MD request
== END 2017-10-05 ==
PROVIDERS: ATTEND Orthopaedic Surgery
DX: Z47.89 Encounter for other orthopedic aftercare (principal); M25.512 Pain in left shoulder; M75.102 Unspecified rotator cuff tear or rupture of left shoulder, not specified as traumatic

== ENCOUNTER 2017-10-06 09:31 | Outpatient (RCR) ==
--- NOTE | 2017-10-06 15:07 | RS.OPPTDN ---
Subjective Date of Note: 10/06/17 Visit #: 18 Date of Evaluation: 08/02/17 Payer Source: MEDICARE Treatment Diagnosis: Rotator cuff tear Current Subjective/complaints:: Patient says her shoulder pain is slightly better. She says her brother just yesterday and she will be driving to [place] for his services. She reports reaching out and behind her is still difficult. *Precautions: no lifting Interventions - Exercise/Activities/Manual Therapy Exercises/Activities: Patient began with PROM and long axis joint distraction for the L UE. She received continued PROM all dir of the L shoulder. A/P joint mobs elicited pain. She performs isometric shoulder flex/ext/IR/ER 2x5. 2 1/2# therapy wand for bilateral shoulder flexion x 10. 1# elbow flexion/ext and wrist. Unable to perform punches or shoulder flexion with weight with elbow extended. She finishes with shoulder pulleys for flexion only. Total minutes of Exercise: 38 Manual Therapy: NA HOME EXERCISE PROGRAM: pt given written HEP for AAROM shld flex and abd/add. isometric shld flex, ext, add, abd. scap retraction with red tband - Charges Timed Code Treatment Minutes: 38 Total Treatment Time: 38 Procedures billed for this date of service:: ex3 Patient Education: Education of diagnosis, Home Exercise Program Patient demonstrates compliance with HEP?: Yes Short Term Goals Goal #1: pt report pain <5/10 L shld Goal to be met by: 08/16/17 Progress towards Goal:: Met Goal #2: pt with improved L shld ROM flex AAROM 110 abd 82 Goal to be met by: 08/16/17 Progress towards Goal:: Met Goal #3: . Goal #4: . Assisted Goals Goal #1: pt independent with HEP Goal to be met by: 09/29/17 Progress towards goal: Met Goal #2: pt report pain 0/10 with activity Goal to be met by: 10/12/17 (pt rates pain 4/10 with activity 1/10 at rest) Progress towards goal: Progressing Goal #3: pt with improved ROM L shld ER 55 Goal to be met by: 10/12/17 (goal previously met, new goal established 10/04/17) Progress towards goal: Progressing Goal #4: pt with improved UE functional index score to >70 Goal to be met by: 10/12/17 Progress towards goal: Progressing Plan PLAN OF CARE EXPIRES ON:: 10/12/17 ORDER # VISITS AND/OR THROUGH DATE: 10/12/17 PLAN: Patient has one session she can attend next week due to being out of town.
--- NOTE | 2017-10-12 09:45 | RS.CXNS ---
Date of scheduled appointment: 10/12/17 Type: Cancel Reason for Cancel/NS: Patient travelling back from [place] and fatigued. She will make her final visit her previous session.
--- NOTE | 2017-10-17 11:36 | RS.OPPTDC ---
Date of Discharge: 10/06/17 Date of Evaluation: 08/02/17 Number of Visits: 18 Treatment Diagnosis: Rotator cuff tear Current Level of Function: pt has made improvement with ROM L shld from eval: flex 100 abd 76, ER 30 to last measurement on 10/04/17 flex 151, abd 116 ER 48. pt has also improved with strength L shld from eval 2-3/5 to current 3- to 3/5. pt is also independent with HEP. pt reports has been able to complete more tasks at home independently. pt continues with pain Current Complaints/Gains: pt states she wants to stop PT due to recent travels due to of sibling. pt states she is performing HEP. Pain Assessment - Pain Description Pain Location: L shld Pain Description: Sharp, Aching Current Pain Intensity: at rest 3/10 Worst Pain Intensity: 5/10 Functional Outcome Measure UE Functional Index: 68 (15%) - G Codes & Severity Modifier G Codes & Modifier: carrying, moving, handling DC CI. carrying, moving, handling goal CH Source of G Code score: UE functional index Observation - Observation Posture: Forward Head, Rounded Shoulders, Increased Thoracic Kyphosis Handedness: Right Gait - Gait Pattern General Gait Pattern Observation: No Deviations/Normal General Range of Motion: L shld flex AROM 135, PROM 151, abd AROM 110 PROM 116, ER 48 Interventions - Exercise/Activities/Manual Therapy Exercises/Activities: n/a Manual Therapy: NA HOME EXERCISE PROGRAM: pt given written HEP for AAROM shld flex and abd/add. isometric shld flex, ext, add, abd. scap retraction with red tband - Charges Timed Code Treatment Minutes: n/a Total Treatment Time: n/a Procedures billed for this date of service:: n/a Assessment Assessment: pt has met all STG's and LTG 1 progressing toward remaining goals with progress made with ROM, strength as well as independent with HEP. Patient Education: Home Exercise Program, Education of Plan of Care Rehab Potential: Good Short Term Goals Goal #1: pt report pain <5/10 L shld Goal to be met by: 08/16/17 Progress towards Goal:: Met Goal #2: pt with improved L shld ROM flex AAROM 110 abd 82 Goal to be met by: 08/16/17 Progress towards Goal:: Met Goal #3: . Goal #4: . Fdc Goals Goal #1: pt independent with HEP Goal to be met by: 09/29/17 Progress towards goal: Met Goal #2: pt report pain 0/10 with activity Goal to be met by: 10/12/17 (pt rates pain 4/10 with activity 1/10 at rest) Progress towards goal: Progressing Goal #3: pt with improved ROM L shld ER 55 Goal to be met by: 10/12/17 (goal previously met, new goal established 10/04/17) Progress towards goal: Progressing Goal #4: pt with improved UE functional index score to >70 Goal to be met by: 10/12/17 Progress towards goal: Progressing Plan Comments: pt has reached a plateau in progress and pt requests to stop PT
== END 2017-11-05 ==
PROVIDERS: ATTEND Orthopaedic Surgery
DX: Z47.89 Encounter for other orthopedic aftercare (principal); M25.512 Pain in left shoulder; M75.102 Unspecified rotator cuff tear or rupture of left shoulder, not specified as traumatic